=== PATIENT | male | born 1955 | race Caucasian/White ===

== ENCOUNTER → 2017-05-17 | Outpatient (CLI) | payer OTHER ==
[2017-05-17 08:06] LABS: Blood Urea Nitrogen 26 mg/dL (9-20); Non-African American GFR(MDRD) >60 (>60 ml/min/1.73 sqM)
--- NOTE | 2017-05-17 09:35 | MR ---
EXAMINATION TYPE: MR brain and iac wo/w con DATE OF EXAM: 05/17/2017 COMPARISON: 04/17/2015 HISTORY: Acoustic Neuroma, Rt side hearing loss TECHNIQUE: Multiplanar, multisequence images of the brain and brainstem is performed without and with IV contras t, utilizing 10.5 mL intravenous Gadavist . FINDINGS: Diffusion weighted images demonstrate no evidence of a recent infarct or other diffusion ab normality. Right-sided craniotomy changes redemonstrated. There is no extra-axial fluid collection or significant white matter signal abnormality. The ventricular system and cisternal spaces are normal in size and appearance. The brain volume is age appropriate. Midline structures demonstrate normal morphology. The craniocervical junction appears within normal l imits. Post contrast images demonstrate no abnormal enhancement. The dural venous sinuses appear haddad nt. A 1 cm mucous retention cyst anteriorly in left maxillary sinus is redemonstrated and stable. Pa rtial opacification left ethmoid sinuses is redemonstrated. Mild mucosal thickening is seen bilateral ly similar to prior study. The globes are intact bilaterally. No abnormal fluid signal seen in mastoid air cells bilaterally. The external auditory canals are haddad nt bilaterally. The vestibulocochlear complexes appear symmetric, there is persistent linear enhancem ent with a 3 mm area of nodular enhancement on the right seen which is stable from previous exam. IMPRESSION: 1. Stable enhancement involving the right seventh/eighth nerve complex with a 7 mm area of nodularity unchanged from the previous exam. Small residual acoustic neuroma excluded with no interval change i n size or appearance.
== END | disposition home or self-care (01) ==
LOC: RADMRIMAIN 07:13
PROVIDERS: ATTEND Otolaryngology Otology & Neurotology
DX: D33.3 Benign neoplasm of cranial nerves (principal)
CPT/HCPCS: 82565; 84520; 70553; 36415; A9581

== ENCOUNTER → 2018-12-18 | Outpatient (CLI) | payer OTHER ==
--- NOTE | 2018-12-18 17:03 | ECHOF ---
Referral Reason:R06.02 Shortness of Breath MEASUREMENTS -------- HEIGHT: 182.9 cm WEIGHT: 108.9 kg BP: IVSd: 1.4 cm (0.6 - 1.1) LVIDd: 4.1 cm (3.9 - 5.3) LVPWd: 1.1 cm (0.6 - 1.1) IVSs: 1.7 cm LVIDs: 3.3 cm LVPWs: 1.5 cm LA Diam: 3.3 cm (2.7 - 3.8) LAESV Index (A-L): 17.34 ml/m Ao Diam: 4.1 cm (2.0 - 3.7) LA Diam: 3.5 cm (2.7 - 3.8) AV Cusp: 2.3 cm (1.5 - 2.6) EPSS: 0.2 cm MV E Benjamin: 0.43 m/s MV DecT: 311 ms MV A Benjamin: 0.64 m/s MV E/A Ratio: 0.67 RAP: 5.00 mmHg RVSP: 23.57 mmHg MV EF SLOPE: 101.47 mm/s (70 - 150) MV EXCURSION: 22.21 mm (> 18.000) FINDINGS -------- Sinus rhythm. This was a technically good study. The left ventricular size is normal. There is mild concentric left ventricular hypertrophy. Overa ll left ventricular systolic function is normal with, an EF between 55 - 60 %. The right ventricle is normal in size. The left atrial size is normal. The right atrial size is normal. Interatrial and interventricular septum intact. The aortic valve is trileaflet, and appears structurally normal. No aortic stenosis or regurgitation. Mild mitral regurgitation is present. Mild tricuspid regurgitation present. There is no evidence of pulmonary hypertension. The right v entricular systolic pressure, as measured by Doppler, is 23.57mmHg. There is no pulmonic regurgitation present. The aortic root size is normal. Normal inferior vena cava with normal inspiratory collapse consistent with estimated right atrial pre ssure of 5 mmHg. There is no pericardial effusion. CONCLUSIONS -------- 1. The left ventricular size is normal. 2. Overall left ventricular systolic function is normal with, an EF between 55 - 60 %. 3. The right ventricle is normal in size. 4. The left atrial size is normal. 5. The right atrial size is normal. 6. Interatrial and interventricular septum intact. 7. The aortic valve is trileaflet, and appears structurally normal. No aortic stenosis or regurgitati on. 8. Mild mitral regurgitation is present. 9. Mild tricuspid regurgitation present. 10. There is no evidence of pulmonary hypertension. 11. The right ventricular systolic pressure, as measured by Doppler, is 23.57mmHg. 12. There is no pulmonic regurgitation present. 13. The aortic root size is normal. 14. Normal inferior vena cava with normal inspiratory collapse consistent with estimated right atrial pressure of 5 mmHg. 15. There is no pericardial effusion. HYGIENE TEACHER: Margarita Weber RDCS
--- NOTE | 2018-12-18 21:04 | EST ---
EXERCISE STRESS AGE: 63 SEX: Male HT: 74 WT: 240 PROTOCOL: Placido STAGE: 3 DURATION OF EXERCISE: 7:30 HEART RATE REST: 75 BLOOD PRESSURE REST: 128/94 MAXIMUM HEART RATE ACHIEVED: 137 MAXIMUM BLOOD PRESSURE: 169/86 85% MPHR: 134 100% MPHR: 158 METS: 9.1 INDICATIONS: Shortness of breath. CLINICAL INFORMATION: Ihcia-ngj-igih-old male patient who underwent an exercise stress test for shortness of breath. Baseline heart rate 75 beats per minute. Baseline blood pressure 128/94 mmHg. Baseline 12-lead ECG showed normal sinus rhythm with normal cardiac intervals. Patient exercised on Placido protocol for 7 minutes 30 seconds, achieving a peak heart rate of 137 beats per minute. Normal blood pressure response to exercise. There were occasional PVCs and one ventricular couplet noted. No ECG evidence for ischemia. IMPRESSION: Average exercise capacity. Normal heart rate and blood pressure response to exercise. Occasional PVCs and one ventricular couplet noted. No ECG evidence for ischemia. MMODL / IJN: [id number] /
== END ==
LOC: RADECHMAIN 08:28
PROVIDERS: ATTEND Family Medicine
DX: I08.1 Rheumatic disorders of both mitral and tricuspid valves (principal)
CPT/HCPCS: 93017; 93306

== ENCOUNTER → 2019-04-30 | Outpatient (CLI) | payer OTHER ==
--- NOTE | 2019-04-30 08:55 | XR ---
EXAMINATION TYPE: XR shoulder complete LT DATE OF EXAM: 04/30/2019 CLINICAL HISTORY: Left shoulder pain. TECHNIQUE: Two views of the left shoulder are obtained as ordered. COMPARISON: None. FINDINGS: There is no acute fracture/dislocation evident in the left shoulder. There is moderate to severe narrowing with mild spurring acromioclavicular joint. Distal acromion morphology is unremarka ble. Glenohumeral joint is maintained. The visualized ribs are intact and unremarkable. IMPRESSION: As above.
== END | disposition home or self-care (01) ==
LOC: RADXRMAIN 08:24
PROVIDERS: ATTEND Orthopaedic Surgery
DX: M25.812 Other specified joint disorders, left shoulder (principal); M75.82 Other shoulder lesions, left shoulder

== ENCOUNTER → 2019-05-13 | Outpatient (CLI) | payer OTHER ==
--- NOTE | 2019-05-13 12:56 | MR ---
EXAMINATION TYPE: MR shoulder LT wo con DATE OF EXAM: 05/13/2019 COMPARISON: Plain film 04/30/2019 HISTORY: L shoulder pain TECHNIQUE: Multiplanar, multisequence imaging of the left shoulder is performed without contrast. FINDINGS: Rotator Cuff: Rotator cuff is markedly attenuated peripherally, there is abnormal increased signal pr esent within the substance of the tendon, as well as local fluid signal. Undersurface is irregular an d there is likely a rim tent tear or partial thickness tear. Acromioclavicular Joint: Hypertrophic changes are present causing some mass effect on the musculotend inous junction of supraspinatus Glenohumeral Joint: Intact Labrum: The anterior labrum shows some abnormal increased signal and is somewhat irregular, difficult to exclude labral tear Biceps Tendon: The long head of biceps is in normal location within bicipital groove. Bone marrow signal: Small pseudocysts present within the humeral head, subchondral geodes in the, cla vicular joint. Other: Fluid signal present in the subacromial subdeltoid bursa. IMPRESSION: Marked acromioclavicular joint arthropathy. Tendinosis, marked attenuation of the rotator cuff tendon peripherally within the stomach partial tear suspected. Difficult to exclude a labral tear.
== END | disposition home or self-care (01) ==
LOC: RADMRIMAIN 06:54
PROVIDERS: ATTEND Orthopaedic Surgery
DX: M19.012 Primary osteoarthritis, left shoulder (principal)

== ENCOUNTER → 2019-05-27 | Outpatient (CLI) | payer OTHER ==
--- NOTE | 2019-05-27 12:21 | MR ---
EXAMINATION TYPE: MR brain and iac wo/w con DATE OF EXAM: 05/27/2019 COMPARISON: MRI brain and IAC dated 05/10/1717 HISTORY: Recheck after excision of a right-sided acoustic neuroma 2yrs ago TECHNIQUE: Multiplanar, multisequence images of the brain on the internal auditory canals and brainstem is perfo rmed without and with IV contrast, utilizing 11 mL intravenous Gadavist . FINDINGS: There is redemonstration of right-sided craniotomy change with very minimal dural thickening and enha ncement along the parietal region. This is unchanged from the prior and likely relates to granulation tissue. Diffusion weighted images demonstrate no evidence of a recent infarct or other diffusion abnormality. There is no extra-axial fluid collection. Very mild burden nonspecific white matter change in a per iventricular distribution. The ventricular system and cisternal spaces are normal in size and appeara nce. The brain volume is age appropriate. Midline structures demonstrate normal morphology. The craniocervical junction appears within normal limits. The dural venous sinuses appear patent. The visualized sinuses display moderate mucosal thickening of the ethmoid sinuses and a left maxillary mucosal retention cyst measuring 1.5 cm versus polyp and sm aller dependent 4 mm mucosal retention cyst versus polyp. Trace mucosal thickening is also seen along the frontal sinuses and right maxillary sinus. Sphenoid sinuses well aerated. Mastoid air cells are also well aerated. There is stable enhancement of the intracanalicular portion of the right 7th and 8th cranial nerve co mplex seen on postcontrast series 801 image 13 of the small [id number] T1-weighted sequence. This is unchanged from the prior of 2017. Linear enhancement is also seen along both the 7th and 8th crani al nerves is there intracanalicular segments only. The left 7th and 8th cranial nerve complexes are u nremarkable. No cerebellar pontine angle mass. IMPRESSION: 1. Unchanged linear and 3 mm nodular enhancement along the right intracanalicular portion of the 7th and 8th cranial nerve complex representing either residual or recurrent acoustic schwannoma or 2. No abnormal enhancement throughout the remainder of the exam. No acute infarct, midline shift or o ther mass effect. 3. Moderate paranasal sinus disease with mucosal retention cysts versus polyps in the left maxillary sinus.
== END | disposition home or self-care (01) ==
LOC: RADMRIMAIN 10:32
PROVIDERS: ATTEND Otolaryngology Otology & Neurotology
DX: G51.8 Other disorders of facial nerve (principal); D33.3 Benign neoplasm of cranial nerves
CPT/HCPCS: 70553; A9585

== ENCOUNTER 2019-07-25 05:58 | Day surgery (SDC) | payer OTHER ==
[2019-07-23 14:35] VITALS: BMI 30.2
--- NOTE | 2019-07-24 16:09 | HP ---
HISTORY AND PHYSICAL REASON FOR ADMISSION: Surgery is 07/25/2019 HISTORY OF PRESENT ILLNESS: Armando Teague is a 63-year-old patient seen with progressive left shoulder pain. We discussed options. He elected to proceed with arthroscopy. Consent was obtained. PAST MEDICAL HISTORY: Noncontributory. PAST SURGICAL HISTORY: Noncontributory. MEDICATIONS: His daily medications are clonazepam. ALLERGIES: NONE. SOCIAL HISTORY: He denies tobacco use. PHYSICAL EXAMINATION: Evaluation of the left shoulder: Flexion 140 degrees, abduction 130 degrees, external rotation is 30 degrees with pain and weakness. There is tenderness along the anterolateral acromion and rotator cuff insertion site. He has a positive impingement sign at 90 degrees. Drop-arm sign is positive. His distal neurovascular exam is intact. RADIOGRAPHS: Radiographs of the left shoulder revealed a type 2 anterior acromion, acromioclavicular joint osteoarthritis, and cystic changes of the greater tuberosity. Left shoulder MRI revealed rotator cuff tear and acromioclavicular joint osteoarthritis. IMPRESSION: 1. Left shoulder impingement with rotator cuff tear. 2. Left shoulder acromioclavicular joint osteoarthritis. PLAN: Left shoulder arthroscopy with subacromial decompression, arthroscopic rotator cuff repair, arthroscopic Rissa procedure, and debridement. Surgery scheduled for 07/25/2019. MMODL / IJN: [id number] /
[~2019-07-25 05:58] MED LIST: HYDROmorphone 0.5 MG/0.5 ML SYRINGE IVP PRN; LACTATED RINGERS 1,000 ML IV SCH; ONDANSETRON 4 MG/2 ML VIAL IVP PRN
[2019-07-25 06:27] VITALS: RESP 16
[2019-07-25] MEDS ORDERED: LIDOCAINE 1% 20 ML VIAL (10MG/ML) FOR IV START INTRADERMA ONE (06:35)
[2019-07-25] MEDS ORDERED: ONDANSETRON 4 MG/2 ML VIAL IVP ONE (06:40)
[2019-07-25] MEDS ORDERED: DEXAMETHASONE SOD PHOSPHATE 10 MG/ML 1 ML VIAL IV ONE (06:41)
[2019-07-25] MEDS ORDERED: MIDAZOLAM 2 MG/2 ML VIAL IVP ONE (06:57)
[2019-07-25] MEDS ORDERED: fentaNYL (PF) 50 MCG/ML 2 ML AMP IVP ONE (06:58)
[2019-07-25] MEDS ORDERED: GLYCOPYRROLATE 0.2 MG/ML 2 ML VIAL ONE (07:34)
[2019-07-25] MEDS ORDERED: MIDAZOLAM 2 MG/2 ML VIAL ONE (07:34)
[2019-07-25] MEDS ORDERED: ROPIVACAINE 5 MG/ML 30 ML VIAL ONE (07:34)
[2019-07-25] MEDS ORDERED: LIDOCAINE 1% INJ 10MG/ML (20 ML MDV) ONE (07:34)
[2019-07-25] MEDS ORDERED: NEOSTIGMINE 1 MG/ML 10 ML VIAL ONE (07:34)
[2019-07-25] MEDS ORDERED: fentaNYL (PF) 50 MCG/ML 2 ML AMP ONE (07:34)
[2019-07-25] MEDS ORDERED: DEXAMETHASONE SOD PHOSPHATE 4 MG/ML 1 ML VIAL ONE (07:34)
[2019-07-25] MEDS ORDERED: KETOROLAC 30 MG/ML 1 ML VIAL ONE (07:34)
[2019-07-25] MEDS ORDERED: PROPOFOL 10 MG/ML 20 ML VIAL IV ONE (07:34)
[2019-07-25] MEDS ORDERED: ROCURONIUM BROMIDE 10 MG/ML 10 ML VIAL IV ONE (07:34)
--- NOTE | 2019-07-25 08:05 | P.ANPRN ---
Procedure Note - Anesthesia - Nerve Block Performed Left Interscalene Single Time Out Performed: Yes Date of Procedure: 07/25/19 Procedure Start Time: 07:44 Procedure Stop Time: 07:56 Location of Patient: PreOp Indication: Acute Post-Operative Pain, Requested by Surgeon Specifically requested for management of pain by DrTangela: Jaime Frank Sedation Type: Sedate with meaningful contact maintained Preparation: Sterile Prep Position: Supine Catheter: None Needle Types: Pajunk Needle Gauge: 21 Ultrasound used to visualize needle placement: Yes Ultrasound used to observe medication spread: Yes Injectate: 0.5% Ropivacaine (see comment for volume) (20 cc) Blood Aspirated: No Pain Paresthesia on Injection Noted: No Resistance on Injection: Normal Image Stored and Saved: Yes Events: Uneventful and Well Tolerated
--- NOTE | 2019-07-25 09:29 | P.OP ---
Date of Procedure: 07/25/19 Preoperative Diagnosis: Left shoulder impingement Postoperative Diagnosis: 1. Left shoulder rotator cuff tear 2. Left shoulder impingement 3. Left shoulder acromioclavicular joint osteoarthritis 4. Left shoulder partial long head biceps tendon tear Procedure(s) Performed: 1. Left shoulder arthroscopic rotator cuff repair 2. Left shoulder arthroscopic subacromial decompression 3. Left shoulder arthroscopic Rissa procedure 4. Left shoulder arthroscopic biceps tenotomy Implants: 44.75 Arthrex swivel lock anchors Anesthesia: GETA, regional (Interscalene block) Surgeon: Jaime Frank Machine Leather Trimmer #1: Owen Fine Estimated Blood Loss (ml): 10 Pathology: none sent Condition: stable Disposition: PACU Indications for Procedure: 63-year-old patient seen with progressive left shoulder pain. After having treatment options discussed, he elected to proceed with arthroscopy. Operative Findings: See description of procedure Description of Procedure: Patient underwent an interscalene block by department of anesthesia for postoperative pain management. The patient was then taken to the operative suite. The patient underwent a general anesthetic by the department of anesthesia. The patient was placed into a lateral position and secured. There was appropriate padding of the bony prominence. Left shoulder was then prepped and draped in normal sterile orthopedic fashion. We placed the extremity in 10 pounds of longitudinal traction. A posterior incision was now made for a posterior working portal site. The trocar and cannula were inserted into the glenohumeral joint. Arthroscopy was initiated. Spinal needle was now inserted anteriorly, to ascertain the anterior working portal site. An incision was now made in that area, a trocar was inserted followed by a probe. There was partial tearing and hyperemia long head biceps tendon. There was an obvious rotator cuff tear clearly visualized from the glenohumeral joint. The labrum was probed and found to be stable. There was no significant chondromalacia. I performed an arthroscopic biceps tenotomy. I again probe the residual labrum and it was stable. Instruments now removed from glenohumeral joint. Utilizing the posterior working portal site, the trocar and cannula were inserted into the subacromial space. Arthroscopy initiated. I made an incision 2 fingerbreadths lateral to the acromion. I introduced my trocar followed by my ArthroCare ablator. I now began ablating thick subacromial bursal tissue, which exposed the undersurface of the anterior acromion. There was diminished subacromial space. There was a very prominent anterior acromion. A motorized bur was introduced and a subacromial decompression was performed. I also excised some osteophytes off the inferior aspect of the distal clavicle. The AC joint was visualized and noted to be fairly arthritic. The motorized bur was introduced in the anterior portal site and a Rissa procedure was performed without difficulty, decompressing the AC joint nicely. I turned my attention to the rotator cuff. There was a 2.5-3 cm rotator cuff tear. I debrided the margins getting down to stable tendon tissue. I introduced my motorized bur and abraded the footprint area, getting some petechial bleeding. I now made an accessory portal site off the lateral aspect of the acromion. I punched 2 holes medial for medial row fixation with the assistance of Sarath JENSEN carefully tapping the punch with a mallet as I held the punch and the camera. I now introduced both anchors into the pre-punched holes and Sarath JENSEN tapped them with the mallet as I held anchors and the camera. Sarath JENSEN now screwed the anchors in place a while I held the anchor guide and camera. All 8 limbs of suture were now passed through good bites of rotator cuff tendon. I now punched 2 holes for lateral row fixation again I held the punch and camera while Sarath JENSEN used a mallet to tap in the punch. We now passed sutures through both anchors and individually I introduced the anchors into the pre- punch holes I held the anchor guide in position with one hand holding the camera with the other hand while Sarath JENSEN tensioned the sutures and screwed in the anchors one at a time. All residual suture limbs were now clipped. We had good compression of the tendon along the entire footprint. I injected 1 mL Jl yte intra-articular. Instruments now removed from the portal sites. All portal sites were approximated with nylon suture. Sterile dressings were applied followed by a shoulder immobilizer. Owen JENSEN assisted in this complex case. The patient was awakened, transferred to a bed, and taken to recovery in stable condition.
[2019-07-25 09:30] VITALS: TEMP 98.6
[2019-07-25 10:49] VITALS: BP 128/82; PULSE 60
== END 2019-07-25 11:10 | disposition home or self-care (01) ==
LOC: OR 05:58
PROVIDERS: ATTEND Orthopaedic Surgery
DX: M75.102 Unspecified rotator cuff tear or rupture of left shoulder, not specified as traumatic (principal); M75.42 Impingement syndrome of left shoulder; M19.012 Primary osteoarthritis, left shoulder; S46.112A Strain of muscle, fascia and tendon of long head of biceps, left arm, initial encounter; H93.19 Tinnitus, unspecified ear; K21.9 Gastro-esophageal reflux disease without esophagitis; Z98.890 Other specified postprocedural states; X58.XXXA Exposure to other specified factors, initial encounter
CPT/HCPCS: 76942; 64415; 29827; 29826; 29824; C1713 ×3; Q4212; J2250; J1100 ×2; J2710; J0690; J2405; J2001; J3010; J1885; J2795; J2704

== ENCOUNTER → 2020-09-06 | Outpatient (CLI) | payer OTHER ==
--- NOTE | 2020-09-07 01:11 | MR ---
EXAMINATION TYPE: MR brain and iac wo/w con DATE OF EXAM: 09/06/2020 COMPARISON: 05/27/2019 HISTORY: Follow-up acoustic neuroma CONTRAST: Standard multiplanar, multisequence MRI departmental protocol utilizing 11 mL intravenous gadolinium contrast. There is mild cerebral cortical atrophy. There is no mass effect nor midline shift. There is no sign of intracranial hemorrhage. There are two small areas of increased signal at the ornelas-white matter ju nction left parietal lobe that measure up to 5 mm. The brainstem is intact. There is no evidence of a posterior fossa mass. There is slight increased signal on the T2 and FLAIR images around the occipit al horn of the left lateral ventricle. The cerebellum is intact. There is normal enhancement of the venous sinuses. There is 2 cm mucous ret ention cyst in the left maxillary sinus. There is mild mucosal thickening in the ethmoid sinuses. There is 3 mm area of nodular enhancement within the lateral and of the right internal auditory canal . This appears unchanged compared to old MR scan of 04/17/2015 and consistent with residual tumor in t his patient with a history of acoustic neuroma. There is also some mild enhancement around the margin s of the internal auditory canal. Unchanged also. Sella turcica appears normal. Pituitary stalk appears normal. Optic chiasm is normal. IMPRESSION: Enhancement in the right internal auditory canal related to postsurgical changes that are stable comp ared to old exam of 2014. No evidence for increasing tumor. Mild cerebral atrophy. Minimal white matter changes in the left posterior parietal and occipital lobe are fairly stable comp ared to old exams. Ethmoid and maxillary sinusitis unchanged..
== END | disposition home or self-care (01) ==
LOC: RADMRIMAIN 07:44
PROVIDERS: ATTEND Otolaryngology Otology & Neurotology
DX: G31.9 Degenerative disease of nervous system, unspecified (principal); R90.89 Other abnormal findings on diagnostic imaging of central nervous system; R93.89 Abnormal findings on diagnostic imaging of other specified body structures; Z98.890 Other specified postprocedural states
CPT/HCPCS: 70553; A9585

== ENCOUNTER → 2021-01-22 | Outpatient (CLI) | payer OTHER | END | disposition home or self-care (01) | LOC: LABWHC1 08:11 | PROVIDERS: ATTEND Surgery | DX: Z20.822 Contact with and (suspected) exposure to COVID-19 (principal) | CPT/HCPCS: U0003; C9803; U0005 ==

== ENCOUNTER 2021-01-29 09:45 | Day surgery (SDC) | payer OTHER ==
[2021-01-27 13:17] VITALS: BMI 30.8
[~2021-01-29 09:45] MED LIST changes: -HYDROmorphone 0.5 MG/0.5 ML SYRINGE IVP PRN; -ONDANSETRON 4 MG/2 ML VIAL IVP PRN
[2021-01-29 10:10] VITALS: TEMP 97.4
[2021-01-29] MEDS ORDERED: LIDOCAINE 1% (10MG/ML) FOR IV START INTRADERMA ONE (10:16)
[2021-01-29] MEDS ORDERED: PROPOFOL 10 MG/ML 20 ML VIAL IV ONE (10:17)
[2021-01-29 10:40] VITALS: BP 123/83; PULSE 69; RESP 14
--- NOTE | 2021-01-29 10:44 | P.HPIHPCON ---
History of Present Illness H&P Date: 01/29/21 65-year-old male presents for screening colonoscopy. He believes this is his second or third colonoscopy. He does not remember he has had polyps in the past. He denies family history of colon cancer or inflammatory bowel disease. Consent for Procedure: I have explained the operation/procedure to the patient, including the risks, benefits, side effects, alternative therapies (including not receiving the proposed treatment or service), the likelihood of the patient achieving his/her goals, and potential recuperation problems for the procedure/sedation/analgesia, as well as any blood products, if indicated. I also explained to the patient the risks, benefits and side effects of the alternatives, as well as the risks related to not receiving the proposed procedure, care, treatment, or services. - Review of Systems All systems: negative Past Medical History Past Medical History: Musculoskeletal Disorder, Osteoarthritis (OA) Additional Past Medical History / Comment(s): tinnitus History of Any Multi-Drug Resistant Organisms: None Reported Additional Past Surgical History / Comment(s): acoustic neuroma removed, lipomas removed, COLONOSCOPY Past Anesthesia/Blood Transfusion Reactions: No Reported Reaction Smoking Status: Never smoker - Past Family History Mother Family Medical History: Cancer Medications and Allergies Home Medications Medication Instructions Recorded Confirmed Type clonazePAM [KlonoPIN] 0.5 mg PO HS PRN 07/23/19 01/27/21 History Allergies Allergy/AdvReac Type Severity Reaction Status Date / Time No Known Allergies Allergy Verified 01/29/21 10:15 Surgical - Exam Osteopathic Statement: *. No significant issues noted on an osteopathic structural exam other than those noted in the History and Physical/Consult. Vital Signs Temp Pulse Resp BP Pulse Ox 97.4 F L 66 16 135/84 99 01/29/21 10:09 01/29/21 10:09 01/29/21 10:09 01/29/21 10:09 01/29/21 10:09 - General well nourished - Respiratory normal respiratory effort - Abdomen Abdomen: soft, non tender Assessment and Plan Plan: 65-year-old male presents today for screening colonoscopy. Risks, benefits and alternatives were provided to the patient. Further recommendations after procedure.
--- NOTE | 2021-01-29 10:53 | P.PCN ---
Date of Procedure: 01/29/21 Preoperative Diagnosis: Screening for colon cancer Postoperative Diagnosis: Diverticulosis Procedure(s) Performed: Colonoscopy Anesthesia: MAC Surgeon: Brian Franco Pathology: none sent Condition: stable Disposition: same day Indications for Procedure: 65-year-old male presents for screening colonoscopy. Risks, benefits and alternatives to the procedure provided patient. Operative Findings: Diverticulosis Description of Procedure: The patient was brought into the endoscopy suite and placed in left lateral decubitus position and adequate sedation was achieved using conscious sedation. A digital rectal exam was performed and internal hemorrhoids were palpated. An endoscope was then placed in the rectum and advanced to the cecum as identified by landmarks including the appendiceal orifice and ileocecal valve. The prep was good. The colonoscope was then slowly withdrawn, examining for any mucosal abnormalities. The cecum, ascending, transverse, descending and sigmoid colon were visualized adequately. There were no large neoplastic lesions noted throughout the colon. There were no obvious polyps noted throughout the colon. Diverticulosis was encountered throughout the colon and was noted to be moderate to severe. Retroflexion was performed in the rectum and internal hemorrhoids were visible. Excess air was removed, the colonoscope withdrawn and the procedure terminated. The patient was then transferred to recovery unit in stable condition. Repeat colonoscopy should be performed in 7 years.
== END 2021-01-29 11:10 | disposition home or self-care (01) ==
LOC: ORWHC2ENDO 09:45
PROVIDERS: ATTEND Surgery
DX: Z12.11 Encounter for screening for malignant neoplasm of colon (principal); K57.30 Diverticulosis of large intestine without perforation or abscess without bleeding; K64.8 Other hemorrhoids; M19.90 Unspecified osteoarthritis, unspecified site; H93.19 Tinnitus, unspecified ear; Z98.890 Other specified postprocedural states; Z80.9 Family history of malignant neoplasm, unspecified
CPT/HCPCS: J2704; G0121; 45378

== ENCOUNTER 2021-03-30 10:14 | Day surgery (SDC) | payer OTHER ==
[2021-03-25 15:12] VITALS: BMI 30.8
[~2021-03-30 10:14] MED LIST changes: +LIDOCAINE 1% (10MG/ML) FOR IV START INTRADERMA PRN; +ONDANSETRON 4 MG/2 ML VIAL IVP PRN; +fentaNYL (PF) 50 MCG/ML 2 ML AMP IV PRN
[2021-03-30] MEDS ORDERED: BACITRACIN OINT 1 EACH PACKET TOPICAL ONE (11:39)
[2021-03-30] MEDS ORDERED: LIDOCAINE 1%-EPI 1:100,000 20 ML VIAL SQ ONE ×2 (11:39→12:30)
[2021-03-30] MEDS ORDERED: MIDAZOLAM 2 MG/2 ML VIAL ONE (11:42)
[2021-03-30] MEDS ORDERED: LIDOCAINE 1% INJ 10MG/ML (20 ML MDV) ONE (11:42)
[2021-03-30] MEDS ORDERED: SUCCINYLCHOLINE CHLORIDE 100 MG/5 ML SYR IV ONE (11:42)
[2021-03-30] MEDS ORDERED: PROPOFOL 10 MG/ML 20 ML VIAL IV ONE (11:42)
[2021-03-30] MEDS ORDERED: fentaNYL (PF) 50 MCG/ML 2 ML AMP ONE (11:42)
[2021-03-30] MEDS ORDERED: LACTATED RINGERS 1,000 ML IV ONE (12:31)
[2021-03-30 12:53] VITALS: TEMP 98
--- NOTE | 2021-03-30 12:53 | P.OP ---
Date of Procedure: 03/30/21 Preoperative Diagnosis: Posterior neck lipoma Lower back sebaceous cyst Postoperative Diagnosis: Posterior neck lipoma Lower back sebaceous cyst Procedure(s) Performed: Excision of lipoma of the posterior neck Excision of sebaceous cyst of lower back Anesthesia: VERNON Surgeon: Brian Franco Pathology: other (Lipoma, sebaceous cyst) Condition: stable Disposition: same day Indications for Procedure: 65-year-old male presented to the clinic with complaints of enlarging mass of the posterior neck. On exam, this did appear to be a lipoma. He also complained of a lesion on the lower back in the mid back. This appears to be a sebaceous cyst. Plan is for excision. Patient was explained risks, benefits and alternatives to the procedure and did provide consent prior to attending the operating suite. Operative Findings: Lipoma measuring 2 x 2 x 1 centimeters Sebaceous cyst measuring 2 x 3 x 2 cm Description of Procedure: The patient was brought to the operating suite placed in supine position on the operating table. Sedation was provided by anesthesia patient underwent endotracheal intubation. The patient was then placed in prone position. He was prepped and draped in regular sterile fashion. Incision was made at the palpable lipoma site on the posterior neck. Dissection was carried to the left. Hemostat was used to dissect the lipoma from the surrounding adherent tissue. The lipoma was then excised completely. It measured 2 x 2 by 1 cm. The wound was then irrigated and closed with interrupted 3-0 vertical mattress suture. Attention was then turned to the lower mid back. An elliptical incision was made over the palpable sebaceous cyst. Dissection was then carried to remove sebaceous cyst in intensity. The cyst measured at 2 x 3 x 1 cm. Hemostasis was achieved with cautery. Copious muss irrigation was placed in the wound. The wound was then closed in 3-0 nylon vertical mattress sutures. Sterile dressings were applied. The patient was awakened in operating room postanesthesia care unit in stable condition.
[2021-03-30 14:13] VITALS: RESP 18
[2021-03-30 14:20] VITALS: BP 134/85; PULSE 61
== END 2021-03-30 14:29 | disposition home or self-care (01) ==
LOC: OR 10:14
PROVIDERS: ATTEND Surgery
DX: D17.0 Benign lipomatous neoplasm of skin and subcutaneous tissue of head, face and neck (principal); D17.1 Benign lipomatous neoplasm of skin and subcutaneous tissue of trunk; L72.3 Sebaceous cyst; M19.90 Unspecified osteoarthritis, unspecified site; J45.909 Unspecified asthma, uncomplicated; F17.200 Nicotine dependence, unspecified, uncomplicated
CPT/HCPCS: 11420; 88304; J2250; J0690; J2405; J2001; J3010; J0330; J2704

== ENCOUNTER → 2022-06-11 | Outpatient (CLI) | payer MEDICARE ==
--- NOTE | 2022-06-12 05:52 | MR ---
EXAMINATION TYPE: MR shoulder RT wo con DATE OF EXAM: 06/11/2022 COMPARISON: None. HISTORY: RIGHT SHOULDER PAIN for 3 years with difficulty raising arm overhead. TECHNIQUE: Multiplanar, multisequence imaging of the right shoulder is performed without contrast. FINDINGS: Rotator Cuff: Distal full-thickness retracted tear of the anterior three fourths fibers of the supras pinatus tendon retracted 1.3 cm from humeral head attachment coronal image 11. Infraspinatus tendon i s intact with some increased signal distally near humeral head insertion. Subscapularis tendon intact . Rotator cuff muscle bulk preserved. Acromioclavicular Joint: Moderate to severe narrowing and moderate capsular hypertrophy along with mi ld to moderate spurring. Subchondral cystic change in the acromioclavicular joint. Type II downslopin g acromion. Glenohumeral Joint: Small to moderate size joint effusion extending superiorly. Slightly high positio rio noted with narrowing. No significant spurring Labrum: The labrum appears grossly intact given limitation of non-arthrogram study. Biceps Tendon: The long head of biceps is in normal location within bicipital groove. Bone marrow signal: No focal abnormal marrow signal is appreciated. Other: Focal fluid signal subdeltoid/subacromial bursa. IMPRESSION: 1. Significant retracted tear involving large portion of the supraspinatus tendon. 2. Moderate to advanced AC joint arthropathy with type II downsloping acromion.
== END | disposition home or self-care (01) ==
LOC: RADMRIMAIN 09:25
PROVIDERS: ATTEND Orthopaedic Surgery
DX: M75.111 Incomplete rotator cuff tear or rupture of right shoulder, not specified as traumatic (principal); M12.811 Other specific arthropathies, not elsewhere classified, right shoulder

== ENCOUNTER → 2022-07-19 | Outpatient (CLI) | payer MEDICARE ==
[2022-07-19 14:30] LABS: Basophils # (A) 0.09 X 10*3/uL (0.00-0.10); Basophils % (A) 1.2 %; Eosinophils # (A) 0.28 X 10*3/uL (0.04-0.35); Eosinophils % (A) 3.9 %; HCT 47.1 % (39.6-50.0); HGB 15.5 g/dL (13.0-17.0); Immature Grans, Automated 0.4 %; Lymphocytes # (A) 1.92 X 10*3/uL (0.90-5.00); Lymphocytes % (A) 26.4 %; MCHC 32.9 g/dL (32.0-37.0); MCV 91.3 fL (80.0-97.0); Monocytes % (A) 9.6 %; NRBC Per 100 WBC 0 /100 WBCS (0.0-0.0); Neutrophils # (A) 4.25 X 10*3/uL (1.80-7.70); Neutrophils % (A) 58.5 %; Platelet Count 265 X 10*3/uL (140-440); RBC 5.16 X 10*6/uL (4.40-5.60); RDW 12.6 % (11.5-14.5); WBC 7.27 X 10*3/uL (4.50-10.00)
[2022-07-19 14:37] LABS: Anion Gap 9.6 mmol/L (10.00-18.00); Carbon Dioxide 26.4 mmol/L (20.0-27.5); Potassium 4.7 mmol/L (3.5-5.5)
== END | disposition home or self-care (01) ==
LOC: LABPAT 09:09
PROVIDERS: ATTEND Orthopaedic Surgery
DX: Z01.818 Encounter for other preprocedural examination (principal); I49.3 Ventricular premature depolarization; M75.41 Impingement syndrome of right shoulder; R94.31 Abnormal electrocardiogram [ECG] [EKG]
CPT/HCPCS: 80051; 85025; 93005

== ENCOUNTER 2022-08-03 05:36 | Day surgery (SDC) | payer MEDICARE ==
[2022-07-28 15:01] VITALS: BMI 30.2
--- NOTE | 2022-08-03 01:49 | HP ---
HISTORY AND PHYSICAL DATE OF SURGERY: 08/03/2002. HISTORY OF PRESENT ILLNESS: Armando Teague is a 66-year-old patient seen with progressive right shoulder pain. We discussed options for treatment. He elected to proceed with right shoulder arthroscopy. Consent regarding the procedure was obtained. PAST MEDICAL HISTORY: Noncontributory. PAST SURGICAL HISTORY: Left shoulder arthroscopy. DAILY MEDICATIONS: NSAIDs as needed. ALLERGIES: None reported. SOCIAL HISTORY: Denies tobacco use. PHYSICAL EVALUATION OF RIGHT SHOULDER: Flexion is 150 degrees, abduction 120 degrees, external rotation is 30 degrees with pain and weakness. He has tenderness along the anterior lateral acromion and rotator cuff insertion site as well as an acromioclavicular joint, impingement is positive 85 degrees. Drop-arm sign is positive. Distal neurovascular exam is intact. RADIOGRAPHS: Right shoulder revealed a type 2 acromion evidence for severe acromioclavicular joint osteoarthritis and cystic changes of the tuberosity. Right shoulder MRI revealed a retracted rotator cuff tendon tear along with acromioclavicular joint osteoarthritis and downsloping anterior acromion. IMPRESSION: 1. Right shoulder impingement with large retracted rotator cuff tendon tear. 2. Right shoulder acromioclavicular joint osteoarthritis. PLAN: Right shoulder arthroscopy with subacromial decompression, rotator cuff repair, Rissa procedure and debridement. MMODL / IJN: [id number] /
[2022-08-03] MEDS ORDERED: ONDANSETRON 4 MG/2 ML VIAL IVP ONE (06:01)
[2022-08-03] MEDS ORDERED: LIDOCAINE 1% (10MG/ML) FOR IV START INTRADERMA PRN (06:01)
[2022-08-03] MEDS ORDERED: MIDAZOLAM 2 MG/2 ML VIAL IV PRN (06:01)
[2022-08-03] MEDS ORDERED: LACTATED RINGERS 1,000 ML IV SCH (06:01)
[2022-08-03] MEDS ORDERED: DEXAMETHASONE SOD PHOSPHATE 4 MG/ML 1 ML VIAL IV ONE (06:01)
[2022-08-03] MEDS ORDERED: LACTATED RINGERS 1,000 ML IV ONE ×3 (06:13→09:45)
[2022-08-03] MEDS ORDERED: ONDANSETRON 4 MG/2 ML VIAL ONE (06:14)
[2022-08-03] MEDS ORDERED: MIDAZOLAM 2 MG/2 ML VIAL IVP ONE (06:47)
[2022-08-03 06:59] VITALS: RESP 16
[2022-08-03] MEDS ORDERED: HYDROmorphone 0.5 MG/0.5 ML SYRINGE IVP PRN (07:00)
--- NOTE | 2022-08-03 07:17 | P.ANPRN ---
Procedure Note - Anesthesia - Nerve Block Performed Right Interscalene Single Date of Procedure: 08/03/22 Procedure Start Time: 06:46 Procedure Stop Time: 06:49 Location of Patient: PreOp Indication: Acute Post-Operative Pain Sedation Type: Sedate with meaningful contact maintained Preparation: Sterile Prep Position: Supine Needle Types: Pajunk Needle Gauge: 20 Ultrasound used to visualize needle placement: Yes Ultrasound used to observe medication spread: Yes Injectate: 0.5% Ropivacaine (see comment for volume) (20 mL with 4mg Decadron) Blood Aspirated: No Pain Paresthesia on Injection Noted: No Resistance on Injection: Normal Image Stored and Saved: Yes Events: Uneventful and Well Tolerated
[2022-08-03] MEDS ORDERED: PHENYLEPHRINE-0.9% NACL SYG 1,000 MCG/10 ML SYRINGE ONE (07:24)
[2022-08-03] MEDS ORDERED: ROCURONIUM 10 MG/ML (5 ML VIAL) IV ONE (07:24)
[2022-08-03] MEDS ORDERED: ROPIVACAINE 5 MG/ML 30 ML VIAL ONE (07:24)
[2022-08-03] MEDS ORDERED: LIDOCAINE 2% INJ 20 MG/ML (2 ML VIAL) ONE (07:24)
[2022-08-03] MEDS ORDERED: NEOSTIGMINE 1 MG/ML 10 ML VIAL ONE (07:24)
[2022-08-03] MEDS ORDERED: DEXAMETHASONE SOD PHOSPHATE 4 MG/ML 1 ML VIAL ONE (07:24)
[2022-08-03] MEDS ORDERED: SUCCINYLCHOLINE CHLORIDE 200 MG/10 ML VIAL IV ONE (07:24)
[2022-08-03] MEDS ORDERED: fentaNYL (PF) 50 MCG/ML 2 ML AMP ONE (07:24)
[2022-08-03] MEDS ORDERED: MIDAZOLAM 2 MG/2 ML VIAL ONE (07:24)
[2022-08-03] MEDS ORDERED: PROPOFOL 10 MG/ML 20 ML VIAL IV ONE (07:24)
[2022-08-03] MEDS ORDERED: GLYCOPYRROLATE 0.2 MG/ML 2 ML VIAL ONE (07:24)
--- NOTE | 2022-08-03 09:11 | P.OP ---
Date of Procedure: 08/03/22 Preoperative Diagnosis: Right shoulder impingement Postoperative Diagnosis: 1. Right shoulder rotator cuff tear 2. Right shoulder impingement 3. Right shoulder acromioclavicular joint osteoarthritis 4. Right shoulder partial long head biceps tendon tear Procedure(s) Performed: 1. Right shoulder arthroscopic rotator cuff repair 2. Right shoulder arthroscopic subacromial decompression 3. Right shoulder arthroscopic Rissa procedure 4. Right shoulder arthroscopic biceps tenotomy Implants: 44.75 Arthrex swivel lock anchors Anesthesia: GETA, regional (Interscalene block) Surgeon: Jaime Frank Sort Line #1: Owen Fine Estimated Blood Loss (ml): 11 Pathology: none sent Condition: stable Disposition: PACU Indications for Procedure: 66-year-old patient seen with progressive right shoulder pain. After having treatment options discussed, he elected to proceed with arthroscopy. Operative Findings: See description of procedure Description of Procedure: Patient underwent an interscalene block by department of anesthesia. The patient was then taken to the operative suite. The patient underwent a general anesthetic by the department of anesthesia. The patient was placed into a lateral position and secured. There was appropriate padding of the bony prominence. Right shoulder was then prepped and draped in normal sterile orthopedic fashion. We placed the extremity in 10 pounds of longitudinal traction. A posterior incision was now made for a posterior working portal site. The trocar and cannula were inserted into the glenohumeral joint. Arthroscopy was initiated. Spinal needle was now inserted anteriorly, to ascertain the anterior working portal site. An incision was now made in that area, a trocar was inserted followed by a probe. There were grade 1 chondromalacia changes of the ulnohumeral joint. There was partial tearing long head biceps tendon. The labrum was mildly frayed but no snuff and tears. I performed an arthroscopic biceps tenotomy. I again probe the labrum and it was stable. Instruments now removed from glenohumeral joint. Utilizing the posterior working portal site, the trocar and cannula were inserted into the subacromial space. Arthroscopy initiated. I made an incision 2 fingerbreadths lateral to the acromion. I introduced my trocar followed by my ArthroCare ablator. I now began ablating thick subacromial bursal tissue, which exposed the undersurface of the anterior acromion. There was diminished subacromial space. There was a very prominent anterior acromion. A motorized bur was introduced and a subacromial decompression was performed. I also excised some osteophytes off the inferior aspect of the distal clavicle. The AC joint was visualized and noted to be fairly arthritic. The motorized bur was introduced in the anterior portal site and a Rissa procedure was performed without difficulty, decompressing the AC joint nicely. I turned my attention to the rotator cuff. There was a 3 cm rotator cuff tear. I debrided the margins getting down to stable tendon tissue. I introduced my motorized bur and abraded the footprint area, getting some petechial bleeding. I now made an accessory portal site off the lateral aspect of the acromion. I punched 2 holes medial for medial row fixation with the assistance of Sarath JENSEN carefully tapping the punch with a mallet as I held the punch and the camera. I now introduced both anchors into the pre-punched holes and Sarath JENSEN tapped them with the mallet as I held anchors and the camera. Sarath JENSEN now screwed the anchors in place a while I held the anchor guide and camera. All 8 limbs of suture were now passed through good bites of rotator cuff tendon. I now punched 2 holes for lateral row fixation again I held the punch and camera while Sarath JENSEN used a mallet to tap in the punch. We now passed sutures through both anchors and individually I introduced the anchors into the pre-punch holes I held the anchor guide in position with one hand holding the camera with the other hand while Sarath JENSEN tensioned the sutures and screwed in the anchors one at a time. All residual suture limbs were now clipped. We had good compression of the tendon along the entire footprint. Instruments now removed from the portal sites. All portal sites were approximated with nylon suture. Sterile dressings were applied followed by a shoulder immobilizer. Owen JENSEN assisted in this complex case. The patient was awakened, transferred to a bed, and taken to recovery in stable condition.
[2022-08-03 09:46] VITALS: TEMP 96.8
[2022-08-03 10:58] VITALS: BP 118/80; PULSE 98
== END 2022-08-03 11:36 | disposition home or self-care (01) ==
LOC: OR 05:36
PROVIDERS: ATTEND Orthopaedic Surgery
DX: M75.101 Unspecified rotator cuff tear or rupture of right shoulder, not specified as traumatic (principal); M66.811 Spontaneous rupture of other tendons, right shoulder; M19.011 Primary osteoarthritis, right shoulder; M75.41 Impingement syndrome of right shoulder; M94.211 Chondromalacia, right shoulder; M25.711 Osteophyte, right shoulder; K21.9 Gastro-esophageal reflux disease without esophagitis; Z98.890 Other specified postprocedural states; Z79.1 Long term (current) use of non-steroidal anti-inflammatories (NSAID)
CPT/HCPCS: 64415; 76942; 29824; 29826; 29827; 29828; C1713 ×2; J2250; J0330; J1100; J2710; J0690; J2405; J3010; J2795; J2370; J2704; J2001

== ENCOUNTER → 2023-04-21 | Outpatient (CLI) | payer MEDICARE | END | disposition home or self-care (01) | LOC: LABPAT 13:53 | PROVIDERS: ATTEND Orthopaedic Surgery | DX: Z01.812 Encounter for preprocedural laboratory examination (principal); M16.11 Unilateral primary osteoarthritis, right hip; Z22.322 Carrier or suspected carrier of Methicillin resistant Staphylococcus aureus | CPT/HCPCS: 87070 ==

== ENCOUNTER 2023-05-01 05:44 | Day surgery (SDC) | payer MEDICARE ==
[2023-04-27 14:21] VITALS: BMI 30.2
--- NOTE | 2023-04-30 23:52 | HP ---
HISTORY AND PHYSICAL DATE OF SURGERY: 05/01/2023. HISTORY OF PRESENT ILLNESS: Armando Teague is a 67-year-old gentleman, seen with progressive right hip pain. We discussed treatment options. He elected to proceed with direct anterior right total hip arthroplasty. Consent regarding the procedure was obtained. Medical clearance was provided by Dr. Mateo Lao. PAST MEDICAL HISTORY: Noncontributory. PAST SURGICAL HISTORY: Left shoulder arthroscopy. DAILY MEDICATIONS: 1. Ibuprofen. 2. Tylenol. ALLERGIES: None. SOCIAL HISTORY: Denies tobacco use. PHYSICAL EVALUATION OF THE RIGHT HIP: He has diffuse tenderness about the hip girdle. Limited range of motion with severe pain. Positive hip impingement sign. Straight-leg raise is negative. Distal neurovascular exam is intact. RADIOGRAPHS: Radiographs of the right hip reveal severe osteoarthritic changes. IMPRESSION: Right hip osteoarthritis. PLAN: Direct anterior right total hip arthroplasty. MMODL / IJN: [id number] /
[~2023-05-01 05:44] MED LIST changes: +ACETAMINOPHEN TAB 500 MG TAB PO PRN; -LACTATED RINGERS 1,000 ML IV SCH; -LIDOCAINE 1% (10MG/ML) FOR IV START INTRADERMA PRN; +MELOXICAM 7.5 MG TAB PO PRN; -ONDANSETRON 4 MG/2 ML VIAL IVP PRN; +TRANEXAMIC 1,000 MG/100ML-NACL 1,000 MG in SALINE 1 100ML.BAG IVPB PRN; -fentaNYL (PF) 50 MCG/ML 2 ML AMP IV PRN
[2023-05-01] MEDS ORDERED: ONDANSETRON 4 MG/2 ML VIAL IVP ONE (06:08)
[2023-05-01] MEDS ORDERED: LIDOCAINE 1% (10MG/ML) FOR IV START INTRADERMA PRN (06:08)
[2023-05-01] MEDS ORDERED: DEXAMETHASONE SOD PHOSPHATE 4 MG/ML 1 ML VIAL IV ONE (06:08)
[2023-05-01] MEDS ORDERED: MIDAZOLAM 2 MG/2 ML VIAL IV PRN (06:08)
[2023-05-01] MEDS ORDERED: LACTATED RINGERS 1,000 ML IV SCH (06:08)
[2023-05-01] MEDS ORDERED: MIDAZOLAM 2 MG/2 ML VIAL IVP ONE (07:11)
[2023-05-01] MEDS ORDERED: fentaNYL (PF) 50 MCG/ML 2 ML AMP ONE (07:27)
[2023-05-01] MEDS ORDERED: GLYCOPYRROLATE 0.2 MG/ML 2 ML VIAL ONE (07:27)
[2023-05-01] MEDS ORDERED: MIDAZOLAM 2 MG/2 ML VIAL ONE (07:27)
[2023-05-01] MEDS ORDERED: ROCURONIUM 10 MG/ML (5 ML VIAL) IV ONE (07:27)
[2023-05-01] MEDS ORDERED: LIDOCAINE 2% INJ 20 MG/ML (2 ML VIAL) ONE (07:27)
[2023-05-01] MEDS ORDERED: SUCCINYLCHOLINE CHLORIDE 200 MG/10 ML VIAL IV ONE (07:27)
[2023-05-01] MEDS ORDERED: TRANEXAMIC 1,000 MG/100ML-NACL PREMIX BAG ONE (07:27)
[2023-05-01] MEDS ORDERED: SODIUM CHLORIDE 0.9% (PF) 10 ML VIAL ONE (07:27)
[2023-05-01] MEDS ORDERED: NEOSTIGMINE 1 MG/ML 10 ML VIAL ONE (07:27)
[2023-05-01] MEDS ORDERED: ROPIVACAINE 5 MG/ML 30 ML VIAL ONE (07:27)
[2023-05-01] MEDS ORDERED: PROPOFOL 10 MG/ML 20 ML VIAL IV ONE (07:27)
[2023-05-01] MEDS ORDERED: LACTATED RINGERS 1,000 ML IV ONE (07:50)
[2023-05-01] MEDS ORDERED: HYDROcodone/APAP 10-325MG 1 EACH TAB PO PRN (08:52)
[2023-05-01] MEDS ORDERED: HYDROcodone/APAP 5-325MG 1 EACH TAB PO PRN (08:52)
[2023-05-01] MEDS ORDERED: HYDROcodone/APAP 7.5-325MG 1 EACH TAB PO PRN (08:52)
[2023-05-01] MEDS ORDERED: HYDROmorphone 0.5 MG/0.5 ML SYRINGE IVP PRN ×2 (08:52)
[2023-05-01] MEDS ORDERED: ACETAMINOPHEN TAB 325 MG TAB PO PRN (08:52)
[2023-05-01] MEDS ORDERED: NALOXONE 0.4 MG/ML 1 ML VIAL IV PRN (08:52)
[2023-05-01] MEDS ORDERED: ONDANSETRON 4 MG/2 ML VIAL IVP PRN (08:52)
[2023-05-01] MEDS ORDERED: HYDROmorphone 1 MG/ML 1 ML SYRINGE IVP PRN (08:52)
[2023-05-01] MEDS ORDERED: ceFAZolin 1,000 MG in SODIUM CHLORIDE 0.9% 1,000 ML IRRIGATION ONE (09:07)
--- NOTE | 2023-05-01 09:09 | P.OP ---
Date of Procedure: 05/01/23 (t) Preoperative Diagnosis: Right hip osteoarthritis Postoperative Diagnosis: Right hip osteoarthritis Procedure(s) Performed: Direct anterior right total hip arthroplasty Implants: 1. Depuy Corail size 12 high offset collar press-fit femoral stem 2. Depuy pinnacle 58 mm press-fit acetabular shell 3. Depuy pinnacle +4 neutral polyethylene acetabular liner 36 mm ID 58 mm OD 4. Biolox delta ceramic femoral head +1.5 36 mm Anesthesia: GETA, regional (Erector spinae block) Surgeon: Jaime Frank Boring Machine Operator Horizontal #1: See Bella Estimated Blood Loss (ml): 85 Pathology: none sent Condition: stable Disposition: PACU Indications for Procedure: 67-year-old patient seen with synthetic right hip osteoarthritis. After treatment options were discussed, he elected to proceed with direct anterior right total hip arthroplasty. Operative Findings: See description of procedure Description of Procedure: The patient was taken to the operative suite. Patient underwent a general an esthetic by the department of anesthesia. Patient was then transferred to the [place] table. Patient was given preoperative IV antibiotics and TXA. Both lower extremities were placed in standard leg spars. The hip was then prepped and draped in the normal sterile orthopedic fashion. A standard anterior incision was made beginning 3 cm lateral and 1 cm distal to the ASIS extending 10 cm. Dissection was then carried down through the subcutaneous soft tissues down to the fascia overlying the tensor fascia yue. An incision was now made through the fascia. Careful dissection was taken down exposing the tensor fascia yue muscle. A Cobra retractor was now placed along the medial femoral neck and a second one along the lateral femoral neck. The venous circumflex vessels were now identified, cauterized and clipped. We identified the anterior hip capsule. An incision was made through the hip capsule along the lateral border. I performed a partial anterior capsulectomy. Retractors were now placed around the femoral neck itself. A femoral neck cut was now made with a sagittal saw. It was completed with an osteotome at the lateral neck area. The femoral head was now removed without difficulty. The extremity was now rotated to 60 of external rotation. It was locked in position. Residual labrum was now debrided out. Serial reaming was performed of the acetabulum while See JENSEN assisted holding an anterior retractor for exposure. Once we reached the appropriate size and a trial was position and fit nicely. The appropriate size was now chosen opened and made available. It was introduced into the acetabulum without difficulty. The C-arm/fluoroscopy was now brought into the operative field. We made sure we had a true AP pelvic view. We now under direct C-a rm/fluoroscopy introduced into the acetabular component with appropriate version and inclination. I held the cup in appropriate position while See JENSEN used a mallet to seat the acetabular component. I noted the component now to be well seated and stable. Acetabular cup introduce her was removed. The C-arm was pulled back. An appropriate liner was introduced and clicked into position. It was felt to be stable. At this point retractors were removed. The extremity was now placed into 135 external rotation with no traction. The leg was now dropped to the ground and adducted. Appropriate retractors were now positioned along the proximal femur. We also placed our femoral look into position. Additional capsular releasing was performed to gain access to the proximal femur. We now used a box osteotome. A canal finder was now utilized. Serial broaching was now performed with the assistance of See JENSEN tapping the broaches down with a mallet while held the broach in appropriate rotation and position. This was done until we reached the appropriate size with good overall rotational stability. Appropriate calcar planing was performed. A trial head/neck was placed into position. The hip was now reduced. The C- arm/fluoroscopy was brought back into the operative field. I obtained an AP pelvis was demonstrated adequate leg length alignment. The C-arm/fluoroscopy was pulled back. Retractors were repositioned and the hip was dislocated. The leg was again taken down to the ground and adducted. Appropriate retractors were repositioned as well as the femoral hook. All trial components were removed. The femoral implant was opened along with the femoral head. The femoral implant was introduced on the appropriate handle into our pre-broached area. I held the component position while See JENSEN used a mallet to seat the femoral component. The femoral component was now noted to be well seated and stable.. The femoral head was introduced with good positioning and fixation noted. Retractors were now removed. The hip was now reduced. There appeared be good positioning of the hip confirmed on intraoperative fluoroscopy. Spot films were obtained to document this. A second gram of TXA was given. The deep and superficial soft tissues were infiltrated with local analgesic. Bipolar cautery had been utilized intermittently through the procedure for hemostasis. The wound was irrigated copiously with pulse lavage mechanical irrigation. The fascia was repaired with Vicryl suture. The subcutaneous soft tissues were repaired in layers with Vicryl suture. The skin was approximated with pernio/Dermabond. Sterile dressings were applied. Patient was then awakened, transferred to a bed and taken to recovery in stable condition. See JENSEN assisted with the complex procedure.
--- NOTE | 2023-05-01 09:25 | FL ---
Intraoperative/procedural fluoroscopic services were provided for right total hip arthroplasty. Total fluoroscopy time is 15 seconds with a total of 2 submitted images to PACS. Total DAP 0.6300 Gycm2. Please see the operative note for further details.
[2023-05-01 09:28] VITALS: TEMP 97.2
[2023-05-01] MEDS ORDERED: HYDROmorphone 0.5 MG/0.5 ML SYRINGE IVP ONE (09:31)
[2023-05-01] MEDS: HYDROmorphone 0.5 MG/0.5 ML SYRINGE IVP PRN ×4 (09:39→10:21)
[2023-05-01 10:34] VITALS: RESP 16
[2023-05-01 12:18] VITALS: BP 136/81; PULSE 81
--- NOTE | 2023-05-01 13:35 | P.ANPRN ---
Procedure Note - Anesthesia - Nerve Block Performed Right David Single Time Out Performed: Yes Date of Procedure: 05/01/23 Procedure Start Time: 07:10 Procedure Stop Time: 07:17 Indication: Requested by Surgeon Sedation Type: Sedate with meaningful contact maintained Preparation: Sterile Prep Position: Supine Needle Types: Facet Needle Gauge: 21 Ultrasound used to visualize needle placement: Yes Ultrasound used to observe medication spread: Yes Injectate: 0.5% Ropivacaine (see comment for volume) (15 mls+10 mls of NS) Blood Aspirated: No Pain Paresthesia on Injection Noted: No Resistance on Injection: Normal Image Stored and Saved: Yes Events: Uneventful and Well Tolerated
== END 2023-05-01 12:54 | disposition home health service (06) ==
LOC: OR 05:44
PROVIDERS: ATTEND Orthopaedic Surgery
DX: M16.11 Unilateral primary osteoarthritis, right hip (principal); G89.18 Other acute postprocedural pain; K21.9 Gastro-esophageal reflux disease without esophagitis; Z79.899 Other long term (current) drug therapy
CPT/HCPCS: 97530; 97161; 86900; 86901; 86850; 73501; 27130; 64999; J2250; J1100; J0690 ×2; J2405; J1170; 64447

== ENCOUNTER → 2024-08-28 | Outpatient (CLI) | payer MEDICARE ==
--- NOTE | 2024-08-28 11:23 | MR ---
EXAMINATION TYPE: MR lumbar spine wo con DATE OF EXAM: 08/28/2024 10:41 AM COMPARISON: None. CLINICAL INDICATION: Male, 68 years old with history of M47.816 RADICULOPATHY, LUMBAR REGION, Lower b ack pain, BLE radiculopathy. TECHNIQUE: Multiplanar, multisequence images of the lumbar spine were acquired without IV contrast. FINDINGS: Heterogeneous marrow signal suggesting red marrow hyperplasia. There are scattered edematous Modic ty pe I endplate changes especially at and T11-T12, T12-L1, L1-L2, and to a lesser extent at L4-L5. Qgja-os-rjbmkpio multilevel degenerative disc disease with desiccated, mildly narrowed, and bulging d iscs. Tiny posterior annular fissure noted at L4-L5. Bulging disks impress on the ventral thecal sac but don't cause any significant spinal canal stenosis . There is moderate facet arthropathy mid to lower lumbar spine. On the right, changes resulting in mild neuroforaminal stenoses L2-L5 levels. On the left, changes result in [id number]-vzstkuvm neural foraminal stenosis at L4-L5 and mild at other levels. Vertebral body heights are preserved and alignment is maintained. Conus medullaris is normal. No prevertebral or paravertebral soft tissue abnormality seen. Ectatic upper abdominal aorta up to 2. 8 cm. IMPRESSION: 1. Ylvl-yi-[id number] multilevel degenerative disc disease with some scattered edematous Modic type I e ndplate change especially around the thoracolumbar junction. A tiny posterior annular fissure is pres ent at L4-L5. There are bulging disks but without a focal disc herniation or significant spinal canal stenosis. 2. Moderate facet arthropathy mid to lower lumbar spine. Changes result in [id number] left neur oforaminal stenosis at L4-L5 and variable mild neuroforaminal narrowing elsewhere throughout the lumb ar spine. [facility], , 08/28/2024 11:21 AM
== END | disposition home or self-care (01) ==
LOC: RADMRIMAIN 09:32
PROVIDERS: ATTEND Orthopaedic Surgery
DX: M43.16 Spondylolisthesis, lumbar region (principal); M47.26 Other spondylosis with radiculopathy, lumbar region; M51.16 Intervertebral disc disorders with radiculopathy, lumbar region; M48.061 Spinal stenosis, lumbar region without neurogenic claudication
CPT/HCPCS: 72148

== ENCOUNTER → 2024-10-24 | Outpatient (CLI) | payer MEDICARE ==
[2024-10-24 10:48] LABS: Basophils # (A) 0.08 X 10*3/uL (0.00-0.10); Basophils % (A) 1.1 %; Eosinophils # (A) 0.52 X 10*3/uL (0.04-0.35); Eosinophils % (A) 7.2 %; HCT 46.3 % (39.6-50.0); HGB 15.2 g/dL (13.0-17.0); Lymphocytes # (A) 2.08 X 10*3/uL (0.90-5.00); Lymphocytes % (A) 28.9 %; MCH 30.4 pg (27.0-32.0); MCHC 32.8 g/dL (32.0-37.0); MCV 92.6 FL (80.0-97.0); Mean Platelet Volume 10.5 FL (9.5-12.2); Monocytes # (A) 0.55 X 10*3/uL (0.20-1.00); Monocytes % (A) 7.6 %; NRBC Per 100 WBC 0 X 10*3/uL (0.00-0.01); Neutrophils # (A) 3.95 X 10*3/uL (1.80-7.70); Neutrophils % (A) 55.1 %; Platelet Count 243 X 10*3/uL (140-440); RDW 12.7 % (11.5-14.5); WBC 7.19 X 10*3/uL (4.50-10.00)
[2024-10-24 10:55] LABS: BUN/Creat Ratio 22.22 Ratio (12.00-20.00); Calcium 9.3 mg/dL (8.7-10.3); Carbon Dioxide 26.6 mmol/L (21.6-31.8); Chloride 104 mmol/L (96-109); Glucose 94 mg/dL (70-110); Potassium 4.6 mmol/L (3.5-5.5); Sodium 140 mmol/L (135-145)
[2024-10-24 12:16] LABS: INR 0.98 sec (0.93-1.11); Prothrombin Time 11.2 sec (9.9-11.9)
== END | disposition home or self-care (01) ==
LOC: LABPAT 07:18
PROVIDERS: ATTEND Orthopaedic Surgery
DX: Z01.818 Encounter for other preprocedural examination (principal); M16.12 Unilateral primary osteoarthritis, left hip; I51.9 Heart disease, unspecified; R53.83 Other fatigue; Z22.322 Carrier or suspected carrier of Methicillin resistant Staphylococcus aureus
CPT/HCPCS: 80048; 85025; 85610; 86850; 86900; 86901; 87070; 93005

== ENCOUNTER 2024-11-04 05:48 | Day surgery (SDC) | payer MEDICARE ==
[2024-10-31 15:43] VITALS: BMI 30.2
--- NOTE | 2024-11-03 15:38 | HP ---
HISTORY AND PHYSICAL Surgery is scheduled for 11/04/2024. HISTORY OF PRESENT ILLNESS: Armando Teague is a 69-year-old gentleman, seen with progressive left hip pain. After having treatment options discussed, he elected to proceed with direct anterior left total hip arthroplasty. Consent regarding the procedure obtained. PAST MEDICAL HISTORY: Noncontributory. PAST SURGICAL HISTORY: Right total hip arthroplasty, left shoulder arthroscopy. DAILY MEDICATIONS: None reported. SOCIAL HISTORY: Denies tobacco use. PHYSICAL EVALUATION OF HIS LEFT HIP: He has limited range of motion with severe pain. Positive hip impingement sign. Straight-leg raise is negative. Distal neurovascular exam is intact. IMAGING STUDIES: Radiographs of the left hip revealed severe osteoarthritic changes. IMPRESSION: Left hip osteoarthritis. PLAN: Direct anterior left total hip arthroplasty. MMODL / IJN: [id number] /
[~2024-11-04 05:48] MED LIST changes: -ACETAMINOPHEN TAB 500 MG TAB PO PRN; -MELOXICAM 7.5 MG TAB PO PRN
[2024-11-04] MEDS: IV FLUID CONTINUATION 1,000 ML IV ONE ×3 (06:30→13:26)
[2024-11-04] MEDS: MELOXICAM 7.5 MG TAB PO PRN (06:47)
[2024-11-04] MEDS: ACETAMINOPHEN TAB 500 MG TAB PO PRN (06:47)
[2024-11-04] MEDS: LACTATED RINGERS 1,000 ML BAG IV STA (06:49)
[2024-11-04] MEDS: ONDANSETRON 4 MG/2 ML VIAL IVP STA (06:49)
[2024-11-04] MEDS: DEXAMETHASONE SOD PHOSPHATE 4 MG/ML 1 ML VIAL IVP STA (06:50)
[2024-11-04] MEDS: MIDAZOLAM 2 MG/2 ML VIAL IV ONE (06:50)
[2024-11-04] MEDS ORDERED: GLYCOPYRROLATE 0.2 MG/ML 2 ML VIAL ONE (07:25)
[2024-11-04] MEDS ORDERED: ROCURONIUM 10 MG/ML (5 ML VIAL) IV ONE (07:25)
[2024-11-04] MEDS ORDERED: DEXAMETHASONE SOD PHOSPHATE 4 MG/ML 1 ML VIAL ONE (07:25)
[2024-11-04] MEDS ORDERED: PROPOFOL 10 MG/ML 20 ML VIAL IV ONE (07:25)
[2024-11-04] MEDS ORDERED: NEOSTIGMINE 1 MG/ML 10 ML VIAL ONE (07:25)
[2024-11-04] MEDS ORDERED: ROPIVACAINE 5 MG/ML 30 ML VIAL ONE (07:25)
[2024-11-04] MEDS ORDERED: SUCCINYLCHOLINE CHLORIDE 200 MG/10 ML VIAL IV ONE (07:25)
[2024-11-04] MEDS ORDERED: LIDOCAINE 1% INJ 10MG/ML (20 ML MDV) ONE (07:25)
[2024-11-04] MEDS ORDERED: fentaNYL (PF) 50 MCG/ML 2 ML AMP ONE (07:25)
[2024-11-04] MEDS ORDERED: droPERidol 2.5 MG/ML VIAL IVP ONE (07:46)
[2024-11-04] MEDS ORDERED: LIDOCAINE 1% (10MG/ML) FOR IV START INTRADERMA PRN (07:46)
[2024-11-04] MEDS ORDERED: DEXAMETHASONE SOD PHOSPHATE 4 MG/ML 1 ML VIAL IV ONE (07:46)
[2024-11-04] MEDS: ceFAZolin 1,000 MG in SODIUM CHLORIDE 0.9% 1,000 ML IRRIGATION ONE (07:58)
[2024-11-04] MEDS ORDERED: NALOXONE 0.4 MG/ML 1 ML VIAL IV PRN (09:05)
[2024-11-04] MEDS ORDERED: HYDROcodone/APAP 7.5-325MG 1 EACH TAB PO PRN (09:05)
[2024-11-04] MEDS ORDERED: ONDANSETRON 4 MG/2 ML VIAL IVP PRN (09:05)
[2024-11-04] MEDS ORDERED: HYDROmorphone 0.5 MG/0.5 ML SYRINGE IVP PRN ×3 (09:05)
--- NOTE | 2024-11-04 09:06 | P.OP ---
Date of Procedure: 11/04/24 Preoperative Diagnosis: Left hip osteoarthritis Postoperative Diagnosis: Left hip osteoarthritis Procedure(s) Performed: Direct anterior left total hip arthroplasty Implants: 1. DePuy Corail size 12 high offset collared press-fit femoral stem 2. DePuy Mitchell 58 mm press-fit acetabular shell 3. DePuy Mitchell +4 neutral polyethylene acetabular liner 36 mm ID 58 mm OD 4. Biolox delta ceramic femoral head +1.5 36 mm Anesthesia: GETA, regional (Erector spinae block) Surgeon: Jaime Frank Coat Operator Insulator #1: Owen Fine Estimated Blood Loss (ml): 50 Pathology: none sent Condition: stable Disposition: PACU Indications for Procedure: 69-year-old patient seen with symptomatic left hip osteoarthritis. After having treatment options discussed, he elected to proceed with direct anterior left total hip arthroplasty. Operative Findings: See description of procedure Description of Procedure: The patient was taken to the operative suite. Patient underwent a general anesthetic by the department of anesthesia. Patient was then transferred to the [place] table. Patient was given preoperative IV antibiotics and TXA. Both lower extremities were placed in standard leg spars. The hip was then prepped and draped in the normal sterile orthopedic fashion. A standard anterior incision was made beginning 3 cm lateral and 1 cm distal to the ASIS extending 10 cm. Dissection was then carried down through the subcutaneous soft tissues down to the fascia overlying the tensor fascia yue. An incision was now made through the fascia. Careful dissection was taken down exposing the tensor fascia yue muscle. A Cobra retractor was now placed along the medial femoral neck and a second one along the lateral femoral neck. The venous circumflex vessels were now identified, cauterized and clipped. We identified the anterior hip capsule. An incision was made through the hip capsule along the lateral border. I performed a partial anterior capsulectomy. Retractors were now placed around the femoral neck itself. A femoral neck cut was now made with a sagittal saw. It was completed with an osteotome at the lateral neck area. The femoral head was now removed without difficulty. The extremity was now rotated to 60 of external rotation. It was locked in position. Residual labrum was now debrided out. Serial reaming was performed of the acetabulum while Sarath JENSEN assisted holding an anterior retractor for exposure. Once we reached the appropriate size and a trial was position and fit nicely. The appropriate size was now chosen opened and made available. It was introduced into the acetabulum without difficulty. The C-arm/fluoroscopy was now brought into the operative field. We made sure we had a true AP pelvic view. We now under direct C- arm/fluoroscopy introduced into the acetabular component with appropriate version and inclination. I held the cup in appropriate position well Sarath JENSEN used a mallet to seat the acetabular component. I noted the component now to be well seated and stable. Acetabular cup introduce her was removed. The C-arm was pulled back. An appropriate liner was introduced and clicked into position. It was felt to be stable. At this point retractors were removed. The extremity was now placed into 140 external rotation with no traction. The leg was now dropped to the ground and adducted. Appropriate retractors were now positioned along the proximal femur. We also placed our femoral look into position. Additional capsular releasing was performed to gain access to the proximal femur. We now used a box osteotome. A canal finder was now utilized. Serial broaching was now performed with the assistance of Sarath JENSEN tapping the broaches down with a mallet while held the broach in appropriate rotation and position. This was done until we reached the appropriate size with good overall rotational stability. Appropriate calcar planing was performed. A trial head/neck was placed into position. The hip was now reduced. The C- arm/fluoroscopy was brought back into the operative field. I obtained an AP pelvis demonstrating good positioning of our trial components. The C-arm /fluoroscopy was pulled back. Retractors were repositioned and the hip was dislocated. The leg was again taken down to the ground and adducted. Appropriate retractors were repositioned as well as the femoral hook. All trial components were removed. The femoral implant was opened along with the femoral head. The femoral implant was introduced on the appropriate handle into our pre-broached area. I held the component position well Sarath JENSEN used a mallet to seat the femoral component. The femoral component was now noted to be well seated and stable.. The femoral head was introduced with good positioning and fixation noted. Retractors were now removed. The hip was now reduced. There appeared be good positioning of the hip confirmed on intraoperative fluoroscopy. Spot films were obtained to document this. A second gram of TXA was given. Bipolar cautery had been utilized intermittently through the procedure for hemostasis. The wound was irrigated copiously with pulse lavage mechanical irrigation. The fascia was repaired with Vicryl suture. The subcutaneous soft tissues were repaired in layers with Vicryl suture. The skin was approximated with pernio/Dermabond. Sterile dressings were applied. Patient was then awakened, transferred to a bed and taken to recovery in stable condition. Sarath JENSEN assisted with the complex procedure.
[2024-11-04 09:39] VITALS: TEMP 96.9
[2024-11-04] MEDS: HYDROmorphone 0.5 MG/0.5 ML SYRINGE IVP PRN (09:51)
--- NOTE | 2024-11-04 09:56 | FL ---
EXAMINATION TYPE: FL guidance operating room DATE OF EXAM: 11/04/2024 CLINICAL HISTORY: Osteoarthritis TECHNIQUE: Fluoroscopy. COMPARISON: None. FINDINGS: LT HIP OSTEOARTHRITIS. 13.5 SECS FL. DAP: 0.5478. IMPRESSION: As Above. [facility], , 11/04/2024 9:53 AM
[2024-11-04] MEDS: LACTATED RINGERS 1,000 ML IV ONE (09:57)
--- NOTE | 2024-11-04 09:57 | XR ---
Fluoroscopy History: M16.12 LEFT HIP OSTEOARTHRITIS LT HIP OSTEOARTHRITIS. 13.5 SECS FL. DAP: 0.5478. [facility], , 11/04/2024 9:55 AM
[2024-11-04] MEDS: MEPERIDINE 25 MG/ML SYRINGE IVP STA (10:57)
[2024-11-04] MEDS: HYDROcodone/APAP 5-325MG 1 EACH TAB PO PRN (12:13)
[2024-11-04] MEDS: ONDANSETRON 4 MG/2 ML VIAL IVP ONE (12:13)
[2024-11-04] MEDS: LACTATED RINGERS 1,000 ML IV SCH (13:26)
[2024-11-04 14:24] VITALS: BP 131/82; PULSE 100; RESP 16
--- NOTE | 2024-11-05 10:31 | P.ANPRN ---
Procedure Note - Anesthesia - Nerve Block Performed Left David Single Time Out Performed: Yes Date of Procedure: 11/04/24 Procedure Start Time: 06:50 Procedure Stop Time: 06:55 Location of Patient: PreOp Indication: Acute Post-Operative Pain, Requested by Surgeon Sedation Type: Sedate with meaningful contact maintained Preparation: Sterile Prep Position: Supine Needle Types: Pajunk Needle Gauge: 21 Ultrasound used to visualize needle placement: Yes Ultrasound used to observe medication spread: Yes Blood Aspirated: No Pain Paresthesia on Injection Noted: No Resistance on Injection: Normal Image Stored and Saved: Yes Events: Uneventful and Well Tolerated (Ropivacaine 0.5% 20 cc was dexamethasone 4 mg)
== END 2024-11-04 14:30 | disposition home or self-care (01) ==
LOC: OR 05:48
PROVIDERS: ATTEND Orthopaedic Surgery
DX: M16.12 Unilateral primary osteoarthritis, left hip (principal); G89.18 Other acute postprocedural pain
CPT/HCPCS: 27130; 64473; 97161; 73501; C1776; J2250; J0330; J1100; J2710; J0690 ×2; J2405; J2003; J3010; J2795; J2704; J1171; J1596; J2175; 64999